=== PATIENT | male | born 1950 | race Native Hawaiian/Other Pacific Islander ===

== ENCOUNTER 2019-10-31 11:45 | Outpatient (CLI) | payer OTHER ==
[~2019-10-31 11:45] MED LIST: AMOX500C85 PO; BENZONATATE200 MG PO; CIPRO500 MG PO; GLIM4TAB PO; HYDR25TA60 PO; LEVO500T PO; MEDROL DOSEPAK4 MG OR; MELOXICAM7.5 MG PO; METF500T PO; METFORMIN ER1000 MG PO; TRIM800T12 PO
== END 2019-10-31 20:47 | disposition home or self-care (01) ==
LOC: RAD 11:45
DX: M25.561 Pain in right knee (principal); M25.562 Pain in left knee

== ENCOUNTER 2020-03-02 10:26 | Outpatient (CLI) | payer OTHER ==
[2020-03-02 11:00] LABS: PLATELET COUNT 174 K/uL (142-355)
[2020-03-02 11:09] LABS: POTASSIUM 4.2 mmol/L (3.6-5.2)
== END 2020-03-02 19:12 | disposition home or self-care (01) ==
LOC: LABW 10:26
PROVIDERS: ATTEND Nurse Practitioner Family
DX: K94.01 Colostomy hemorrhage (principal); K92.2 Gastrointestinal hemorrhage, unspecified
CPT/HCPCS: 36415; 80053; 82272; 82705; 83630; 85027; 85610; 87015; 87045; 87324; 87328; 87329; 87338; 87449; 87899

== ENCOUNTER 2021-01-28 09:54 | Outpatient (CLI) | payer OTHER | END 2021-01-28 20:15 | disposition home or self-care (01) | LOC: MRI 09:54 | PROVIDERS: ATTEND Nurse Practitioner Family | DX: G96.89 Other specified disorders of central nervous system (principal); G25.2 Other specified forms of tremor; G20 Parkinson's disease; I65.23 Occlusion and stenosis of bilateral carotid arteries ==

== ENCOUNTER 2021-03-28 12:21 | Outpatient (CLI) | payer OTHER | END 2021-03-28 20:26 | disposition home or self-care (01) | LOC: CT 12:21 | PROVIDERS: ATTEND Nurse Practitioner Family | DX: R10.9 Unspecified abdominal pain (principal); R11.0 Nausea; Z87.442 Personal history of urinary calculi; Z85.038 Personal history of other malignant neoplasm of large intestine; R06.02 Shortness of breath; R09.02 Hypoxemia; Z08 Encounter for follow-up examination after completed treatment for malignant neoplasm; Z09 Encounter for follow-up examination after completed treatment for conditions other than malignant neoplasm | CPT/HCPCS: 36415; 82565; 84520 ==

== ENCOUNTER 2021-04-22 10:47 | Outpatient (CLI) | payer OTHER | END 2021-04-22 19:58 | disposition home or self-care (01) | LOC: LAB 10:47 | PROVIDERS: ATTEND Nurse Practitioner Family | DX: D64.89 Other specified anemias (principal) | CPT/HCPCS: 82272 ==

== ENCOUNTER 2021-11-07 10:40 | Outpatient (CLI) | payer OTHER | END 2021-11-07 19:50 | disposition home or self-care (01) | LOC: LABW 10:40 | PROVIDERS: ATTEND Nurse Practitioner Family | DX: D64.89 Other specified anemias (principal) | CPT/HCPCS: 82272 ==